=== PATIENT | female | born 1950 | race Hispanic/Latino ===

== ENCOUNTER 2016-08-02 07:07 | Outpatient (CLI) | payer MEDICARE, OTHER ==
[2016-08-02] MEDS ORDERED: NACL ONE (07:55)
== END 2016-08-02 07:08 | disposition home or self-care (01) ==
LOC: CT 07:07
PROVIDERS: ATTEND Radiology Vascular & Interventional Radiology
DX: I73.9 Peripheral vascular disease, unspecified (principal); S91.309A Unspecified open wound, unspecified foot, initial encounter; X58.XXXA Exposure to other specified factors, initial encounter; Y93.89 Activity, other specified; Y92.89 Other specified places as the place of occurrence of the external cause; Y99.8 Other external cause status
CPT/HCPCS: 75635; Q9967

== ENCOUNTER 2016-08-16 05:47 | Day surgery (SDC) | payer MEDICARE, OTHER ==
[2016-08-16] MEDS ORDERED: NACL 0.9% 500 ML 500 ML ONE (06:14)
[2016-08-16] MEDS ORDERED: NACL 0.9% 500 ML 500 ML IV SCH (07:00)
[2016-08-16 07:01] LABS: Basophils % (Auto) 0.4 % (0.0-1.8); Eosinophils % (Auto) 5.7 % (0.0-4.3); Hematocrit 38.8 % (30.3-42.9); Mean Corpuscular HGB Conc 34 % (30-34); Mean Corpuscular Hemoglobin 28 pg (28-32); Mean Corpuscular Volume 84 fl (79-97); Platelet Count 337 K/mm3 (140-440); Red Blood Count 4.63 M/mm3 (3.65-5.03); Red Cell Distribution Width 13.7 % (13.2-15.2); White Blood Count 11.2 K/mm3 (4.5-11.0)
[2016-08-16 07:12] LABS: Anion Gap 19 mmol/L; BUN/Creatinine Ratio 31.66; Blood Urea Nitrogen 19 mg/dL (7-17); Calcium 8.8 mg/dL (8.4-10.2); Carbon Dioxide 25 mmol/L (22-30); Chloride 104.2 mmol/L (98-107); Glucose 106 mg/dL (65-100); Potassium 3.9 mmol/L (3.6-5.0); Sodium 144 mmol/L (137-145)
[2016-08-16 07:14] LABS: Partial Thromboplastin Time 27.7 Sec. (24.2-36.6)
--- NOTE | 2016-08-16 07:44 | Anesthesia Consultation ---
Anesthesia Consult and Med Hx Date of service: 08/16/16 - Airway Anesthetic Teeth Evaluation: Good, Bridges (upper right), Partials (bottom) ROM Head & Neck: Adequate Mental/Hyoid Distance: Adequate Mallampati Class: Class II Intubation Access Assessment: Probably Good - Pre-Operative Health Status ASA Pre-Surgery Classification: ASA3 Proposed Anesthetic Plan: MAC - Pulmonary Hx Smoking: Yes (former smoker) Hx Asthma: No COPD: No Hx Pneumonia: Yes ("been awhile") Hx Sleep Apnea: No - Cardiovascular System Hx Hypertension: Yes Hx Coronary Artery Disease: No Hx Heart Attack/AMI: No Hx Angina: No Hx Percutaneous Transluminal Coronary Angioplasty (PTCA): No Hx Cardia Arrhythmia: Yes (h/o a-fib) Hx Pacemaker: No Hx Internal Defibrillator: No Hx Valvular Heart Disease: No Hx Heart Murmur: No Hx Peripheral Vascular Disease: Yes (s/p left BKA (09/2013)) - Central Nervous System Hx Seizures: No CVA: No Hx Psychiatric Problems: Yes (anxiety/depression) - Endocrine Hx Renal Disease: No Hx End Stage Renal Disease: No Hx Liver Disease: No Hx Insulin Dependent Diabetes: No Hx Non-Insulin Dependent Diabetes: No - Hematic Hx Anemia: Yes Hx Sickle Cell Disease: No - Other Systems Hx Cancer: No
--- NOTE | 2016-08-16 07:46 | Anesthesia Day of Surgery ---
Anesthesia Day of Surgery - Day of Surgery Patient Examined: Yes Patient H&P Reviewed: Yes Patient is NPO: Yes
[2016-08-16] MEDS ORDERED: DILAUDID ONE (08:03)
[2016-08-16] MEDS ORDERED: VERSED IV ONE (08:04)
[2016-08-16] MEDS ORDERED: DIPRIVAN 10 MG/ML IV ONE ×4 (08:04)
[2016-08-16] MEDS ORDERED: XYLOCAINE MPF 2% ONE (08:05)
[2016-08-16] MEDS ORDERED: HEPARIN/NS 5000 UNIT/500ML(CATH LAB) 1,000 ML IR ONE (08:08)
[2016-08-16] MEDS ORDERED: ANCEF/STERILE WATER 2 GM/20 ML 2 GM/20 ML SYRINGE IV ONE (08:09)
[2016-08-16] MEDS ORDERED: HEPARIN 10,000 UNITS/10 ML ONE (08:09)
[2016-08-16] MEDS ORDERED: XYLOCAINE 2% INFILTRATI ONE (08:09)
--- NOTE | 2016-08-16 10:02 | Post Anesthesia Evaluation ---
- Post Anesthesia Evaluation Patient Participated: Yes Airway Patent: Yes Stable Respiratory Function: Yes Temp > 96.8F: Yes Pain Manageable: Yes Adequeate Hydration: Yes Anesthesia Complications: No Block Receding Appropriately: Not Applicable
[2016-08-16] MEDS ORDERED: PERCOCET 5/325 PO PRN ×2 (10:16→10:17)
--- NOTE | 2016-08-16 10:42 | Short Stay Summary ---
Short Stay Documentation Date of service: 08/16/16 Narrative H&P: Right foot rest pain with ischemic changes including 3rd and 4th toe gangrenous changes. Right lateral foot changes as well. History of multiple interventions. Also left BKA - History Principal diagnosis: Right foot ischemic changes and rest pain H&P: obtained from office Past Surgical History: cholecystectomy, tonsillectomy, Other (Left BKA) Social history: , other (Former smoker) - Allergies and Medications Current Medications: Allergies codeine Allergy (Verified 07/31/13 06:08) Vomiting amoxicillin trihydrate [From Augmentin] Adverse Reaction (Verified 07/31/13 06: 04) Nausea gabapentin Adverse Reaction (Verified 07/31/13 06:10) Vomiting hydrocodone Adverse Reaction (Verified 07/31/13 06:09) Vomiting potassium clavulanate [From Augmentin] Adverse Reaction (Verified 07/31/13 06:04 ) Nausea sulfamethoxazole [From Bactrim] Adverse Reaction (Unverified 08/02/16 07:12) Dizziness,LIGHT HEADED, tramadol Adverse Reaction (Unverified 08/02/16 07:12) Dizziness,LIGHT HEADED tramadol HCl [From Ultram] Adverse Reaction (Verified 07/31/13 06:10) Vomiting trimethoprim [From Bactrim] Adverse Reaction (Unverified 08/02/16 07:12) Dizziness,LIGHT HEADED, Home Medications Medication Instructions Recorded Confirmed Last Taken Type Aspirin EC [Aspirin Enteric Coated 81 mg PO DAILY #30 tablet 10/23/13 08/16/16 08/15/16 Rx TAB] Metoprolol [Lopressor TAB] 50 mg PO BID #60 tablet 10/23/13 08/16/16 08/15/16 Rx Multivitamin Tab [Multiple Vitamin 1 each PO QDAY #30 tablet 10/23/13 08/16/16 08/15/16 Rx TAB (Theragran)] ALPRAZolam [Xanax TAB] 0.25 mg PO QHS PRN 08/16/16 08/16/16 08/15/16 History Diltiazem Cd [Cardizem CD] 240 mg PO QDAY 08/16/16 08/16/16 08/15/16 History Naproxen Sodium [Aleve TAB] 220 mg PO Q8H PRN 08/16/16 08/16/16 08/15/16 History Active Medications Sodium Chloride (Nacl 0.9% 500 Ml) 500 mls @ 50 mls/hr IV DIRECT ALIVIA Last Admin: 08/16/16 07:25 Dose: 50 mls/hr Oxycodone/Acetaminophen (Percocet 5/325) 1 tab PO Q4H PRN PRN Reason: Pain, Moderate (4-6) Oxycodone/Acetaminophen (Percocet 5/325) 2 tab PO Q4H PRN PRN Reason: Pain, Moderate (4-6) - Physical exam General appearance: mild distress Integumentary: no rash HEENT: PERRLA Lungs: Clear to auscultation Breasts: deferred Heart: Regular rate, Normal S1, Normal S2 Gastrointestinal: normal Female Genitourinary: deferred Rectal Exam: deferred Extremities: abnormal (Right foot dependent rubor. Tips of 3rd and 4th toes with ischmic changes as well as lateral aspect of the foot. Left BKA. Dopplerable right PT and DP) Neurological: Normal speech - Brief post op/procedure progress note Date of procedure: 08/16/16 Pre-op diagnosis: Right foot ischemia Post-op diagnosis: same Procedure: Abdominal aortagram with RLE run-off Anesthesia: MAC Findings: Extensive peripheral occlusive areas on the right with poor run-off. Full report to follow. No intervention performed Surgeon: VIVI WESTBROOK Estimated blood loss: minimal Pathology: none Condition: stable - Disposition Condition at discharge: Good Disposition: DISCHARGED TO HOME OR SELFCARE Short Stay Discharge Plan Activity: advance as tolerated Weight Bearing Status: Full Weight Bearing Wound: keep clean and dry
[2016-08-16 13:58] VITALS: BP 148/83
--- NOTE | 2016-08-17 08:27 | Vascular Lab Report ---
MISCELLANEOUS VESSEL IDENTIFICATION: COMMENTS ON THE SCAN: The left common femoral artery was identified and under real-time ultrasound guidance was cannulated. IMPRESSION: Successful ultrasound guided arterial cannulation.
--- NOTE | 2016-08-18 14:18 | Operative Report ---
Operative Report Operative Report: Abdominal aortagram and right lower extremity arteriogram. Indication: Right leg rest pain. Right foot ulcers Physician: Shashank Anesthesia: Moderate IV sedation. Procedure: Following informed and written consent, the patient was placed supine on the angiographic table and the left groin prepped and draped in the usual sterile fashion. Lidocaine was used for local anesthetic. Using ultrasound guidance, the left common femoral artery was accessed using a micropuncture access set and a 5Fr transitional dilator inserted. A 0.035 inch guidewire was advanced into the aorta and the dilator exchanged for a 5 Fr vascular sheath. A 5 Fr flush catheter was advanced into the abdominal aorta above the level of the renal arteries and an abdominal aortagram was performed. The catheter was then withdrawn just above the bifurcation and evaluation of the pelvic arteries performed. Selective catheterization of the right common femoral artery was performed using a 5 Fr vertebral catheter and then selective right lower extremity run-off performed using DSA. The catheter and sheath were removed and manual compression of the left common femoral artery was performed until adequate hemostasis was achieved. The patient was taken to the holding area in satisfactory condition and discharged following a 4 hour recovery time. Findings: The abdominal aorta is patent with atherosclerotic calcification present. The renal arteries are patent. There is diffuse atheroscleotic calcification involving the iliac arteries. The right common iliac artery stent is patent. There is a left external iliac artery stent which is patent. Right lower extremity: The common femoral artery is patent as well as the profunda femoris. There is stenosis of greater than 50% with plaque at the origin of the superficial femoral artery. There is a diffusely diseased SFA which occludes mid way above the existing stent. There is reconstitution of the popliteal artery above the knee which is small in caliber. The anterior tibial artery occludes proximally. There is a moderate stenosis at the origin of the TP trunk. The posterior tibial artery occludes proximally.The peroneal artery is the dominant run-off and is overall small caliber. There is reconstitution of a small distal AT with minimal DP. There is collateral flow from the communication branch of the peroneal to the PT distribution. There is poor overall flow to the foot. Patient has had previous left BKA. Impression: 1. 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 2. Stenosis at the origin of the right SFA. 3. Occlusion of the right mid SFA above the existing stent. 4. Stenosis at the origin of the TP trunk 5. Dominant run-off is the peroneal artery. 6. Will refer to vascular surgery for possible bypass.
== END 2016-08-16 13:56 | disposition home or self-care (01) ==
LOC: OPU 05:47
PROVIDERS: ATTEND Radiology Vascular & Interventional Radiology
DX: I70.239 Atherosclerosis of native arteries of right leg with ulceration of unspecified site (principal); L97.919 Non-pressure chronic ulcer of unspecified part of right lower leg with unspecified severity; I10 Essential (primary) hypertension; I48.91 Unspecified atrial fibrillation; D64.9 Anemia, unspecified; F41.9 Anxiety disorder, unspecified; Z89.512 Acquired absence of left leg below knee; Z90.49 Acquired absence of other specified parts of digestive tract; Z98.890 Other specified postprocedural states; Z87.891 Personal history of nicotine dependence; Z87.01 Personal history of pneumonia (recurrent); Z90.710 Acquired absence of both cervix and uterus; Z88.5 Allergy status to narcotic agent; Z88.1 Allergy status to other antibiotic agents; Z88.8 Allergy status to other drugs, medicaments and biological substances; Z79.899 Other long term (current) drug therapy
CPT/HCPCS: 36200; 36415; 75625; 75710; 76937; 80048; 85025; 85610; 85730; C1769; C1887; J0690; J1170; J1644; J2250; J2704; J7040; Q9967